=== PATIENT | male | born 1965 | race Asian ===

== ENCOUNTER 2021-06-09 18:28 | Emergency (ER) | payer MEDICAID ==
[~2021-06-09] VITALS: Ht 160 cm; Wt 67.1 kg
[2021-06-09 18:30] VITALS: BP_SYST 137
--- NOTE | 2021-06-09 18:30 | NUR ---
Pt to bed 6 for evaluation. Report given to MARIA Saucedo who will assume care.
--- NOTE | 2021-06-09 18:45 | NUR ---
ER at bedside examining patient.
--- NOTE | 2021-06-09 18:49 | NUR ---
pt. bib with c/o RLQ abd. pain since yesterday with N/V, denies diarrhea, rates pain 08/25
--- NOTE | 2021-06-09 19:03 | NUR ---
Patient transported to radiology via wheelchair, accompanied by staff.
[2021-06-09 19:15] LABS: BASOPHILS % (AUTO) 0.2 % (0.0-2.0); EOSINOPHILS % (AUTO) 0.2 % (0.0-4.0); HEMATOCRIT 42.4 % (36-54); HEMOGLOBIN 14.6 g/dL (14.0-18.0); LYMPHOCYTES # (AUTO) 1.2 K/uL (1.0-5.5); LYMPHOCYTES % (AUTO) 9.4 % (20.5-51.5); MEAN CORPUSCULAR HEMOGLOBIN 32 pg (27-31); MEAN CORPUSCULAR HGB CONC 34 % (32-36); MEAN CORPUSCULAR VOLUME 94 fL (79.0-98.0); MONOCYTES # (AUTO) 1.5 K/uL (0.0-1.0); MONOCYTES % (AUTO) 11.5 % (1.7-9.3); NEUTROPHILS # (AUTO) 10.1 K/uL (1.8-7.7); NEUTROPHILS % (AUTO) 78.7 % (40.0-70.0); PLATELET COUNT (AUTO) 197 K/uL (130-430); RED BLOOD CELL COUNT(AUTO) 4.53 MIL/uL (4.2-6.2); RED CELL DISTRIBUTION WIDTH 13.6 % (9.0-15.0); WHITE BLOOD COUNT (AUTO) 12.8 K/uL (4.8-10.8)
--- NOTE | 2021-06-09 19:15 | NUR ---
report to Saray
[2021-06-09 19:16] LABS: CALCIUM 9.1 mg/dL (8.4-11.0); CREATININE 1.85 mg/dL (0.55-1.30); POTASSIUM 3.9 mmol/L (3.5-5.1)
[2021-06-09 19:20] LABS: C-REACTIVE PROTEIN QUANT 0.7 mg/dL (0-0.5)
[2021-06-09 19:22] LABS: ALBUMIN 3.7 g/dL (3.4-4.8); TOTAL BILIRUBIN 0.5 mg/dL (0.0-1.0)
[2021-06-09 19:28] LABS: PROTHROMBIN TIME 10.3 SECS (9.5-12.5)
--- NOTE | 2021-06-09 19:46 | NUR ---
recd report from Sheryl SIFUENTES for continuity of care. connectedto bedside monitor V/S stable.
--- NOTE | 2021-06-09 20:08 | NUR ---
IV START AT [facility] G20 SALINE INFUSING AT LOW RATE TO KEEP VEIN OPEN.
[2021-06-09] MEDS ORDERED: IBUP-2018 PO (20:11)
[2021-06-09] MEDS ORDERED: HYDR-3917 PO (20:11)
[2021-06-09] MEDS ORDERED: NACL 0.9% 1,000 ML IV ONE (20:15)
[2021-06-09] MEDS ORDERED: KETOROLAC TROMETHAMINE 15 MG VIAL IVP ONE (20:15)
[2021-06-09] MEDS ORDERED: KETOROLAC TROMETHAMINE 15 MG VIAL ONE (20:17)
[2021-06-09 20:40] LABS: BILIRUBIN,URINE NEGATIVE (NEGATIVE); CLARITY/URINE CLEAR (CLEAR); COLOR,URINE YELLOW (YELLOW); GLUCOSE,URINE NEGATIVE (NEGATIVE); KETONES,URINE NEGATIVE (NEGATIVE); LEUKOCYTE ESTERASE ,URINE NEGATIVE (NEGATIVE); NITRITE, URINE NEGATIVE (NEGATIVE); PROTEIN URINE NEGATIVE (NEGATIVE); UROBILINOGEN,URINE 0.2 (0.2-1.0)
[2021-06-09 20:42] LABS: BLOOD, URINE TRACE (NEGATIVE)
[2021-06-09 21:10] LABS: BACTERIA,URINE FEW /HPF (None Seen); RBC,URINE 0-3 /HPF (0-3); WBC,URINE 0-3 /HPF (0-3)
[2021-06-09 21:11] VITALS: BP_SYST 126
[2021-06-09 21:11] LABS: URINE AMORPHOUS PHOSPHATES 1+ /HPF (None Seen)
--- NOTE | 2021-06-09 21:13 | NUR ---
2045 tORADOL ivp 15 MG GIVEN ORDERED. AWAITING FOR D/C HOME.
--- NOTE | 2021-06-09 21:13 | NUR ---
2109 D/C TO HOME CAME TO PICK HIM D/C INSTRUCTION GIVEN.
--- NOTE | 2021-06-09 21:14 | NUR ---
Patient given written and verbal discharge instructions and verbalizes understanding. PETE LOPES MD discussed with patient the results and treatment provided. Patient in stable condition. ID arm band removed. IV catheter removed intact and dressing applied, no active bleeding. Rx of given. Patient educated on pain management and to follow up with PMD. Pain Scale . Opportunity for questions provided and answered. Medication side effect fact sheet provided.
== END 2021-06-09 21:11 | disposition home or self-care (01) ==
LOC: SED 18:28
DX: N20.0 Calculus of kidney (principal); N28.9 Disorder of kidney and ureter, unspecified
CPT/HCPCS: 36415; 74176; 76376; 80053; 81000; 82150; 83605; 83690; 85025; 85610; 85730; 86140; 96361; 96374; 99284; J1885; J7030